=== PATIENT | female | born 1985 | race Caucasian/White ===

== ENCOUNTER 2020-03-27 18:52 | Emergency (ER) | payer OTHER ==
[~2020-03-27] VITALS: Ht 157.5 cm; Wt 84.4 kg
[2020-03-27] MEDS ORDERED: FLUCONAZOLE200 MG (19:09)
[2020-03-27] MEDS ORDERED: MAGIC MOUTHWASH (19:10)
[2020-03-27] MEDS ORDERED: NYSTATIN100000 UNI PO (21:48)
== END 2020-03-27 21:58 | disposition home or self-care (01) ==
LOC: ER 18:52
DX: B37.0 Candidal stomatitis (principal)